=== PATIENT | female | born 1945 | race Caucasian/White ===

== ENCOUNTER 2021-11-30 13:02 | Observation (INO) ==
[2021-11-30 13:17] VITALS: BMI 24.9
[2021-11-30] MEDS ORDERED: XOPENEX 1.25 MG/3 ML NEBULE NEB ONE ×5 (13:35→17:29)
[2021-11-30] MEDS ORDERED: NS 1,000 ML IV 1,000 ML IV ONE (13:41)
[2021-11-30] MEDS ORDERED: SOLU-Medrol 125 MG VIAL IVP ONE (13:41)
--- NOTE | 2021-11-30 13:41 | DR.SOBA ---
HPI Time Seen Time Seen by Provider: 11/30/21 13:38 HPI Comment HPI Comment: EMS BROUGHT PATIENT TO EMERGENCY ROOM WITH A HISTORY OF CHRONIC DYSPNEA, PROGRESSIVELY WORSE TODAY. ALSO HAS A HISTORY OF CHRONIC BACK PAIN. DENIES FEVER, CHILLS NIGHT SWEATS Complaints Chief Complaint Doctors Comments: INCREASING DYSPNEA Chief Complaint:: PT ARRIVED PER [facility] FROM HOME W/ C/O CHRONIC SOB. PT STATES SOB BECAME WORSE THAN NORMAL TODAY. PT ALSO C/O CHRONIC BACK PAIN. PT DENIES ANY INJURIES @ THIS TIME. COVID-19 Coronavirus risk:travel/contact w/high risk person: No Has patient experienced Coronavirus symptoms: No Source History Provided: Patient and EMS Mode of Arrival Mode of Arrival: EMS Timing Onset of Chief Complaint: 11/30/21 Context Onset:: At Rest History of:: COPD Modifying Factors Worsens:: Exertion Associated Signs and Symptoms Associated Signs and Symptoms: Cough PMH PMH Past Medical History: Yes (UNKNOWN @ THIS TIME) Past Surgical History: Yes Surgical History: Unknown Family History History of Family Medical Conditions: Yes (UNKNOWN @ THIS TIME) Social History Does patient currently use any type of tobacco product: Yes Have you used tobacco products in the last 12 months: Yes Type of Tobacco Use: Cigarettes Travel Risk Coronavirus risk:travel/contact w/high risk person: No Has patient experienced Coronavirus symptoms: No Infectious screening Have you traveled outside the country in the last 6 months?: No Isolation: Standard ROS Review of Systems Constitutional: See HPI Eyes: No Symptoms Reported ENTM: No Symptoms Reported Respiratoy: See HPI, Dry Cough and Short of Breath Cardiovascular: No Symptoms Reported Gastrointestinal/Abdominal: No Symptoms Reported Genitourinary: No Symptoms Reported Neurological: No Symptoms Reported Musculoskeletal: Back Pain Integumentary: No Symptoms Reported Hematologic/Lymphatic: No Symptoms Reported Endocrine: No Symptoms Reported Psychiatric: No Symptoms Reported All Other Systems: Reviewed and Negative PE Vital Signs Vitals: Temperature 98.0 F Pulse Rate 101 Respiratory Rate 22 Blood Pressure 136/76 O2 Sat by Pulse Oximetry 98 General General Appearance: In Distress (MODERATE DISTRESS, MODERATE TACHYPNEA, LABORED BREATHING) Head Head Exam: Normal Inspection and Atraumatic Eyes Eye exam: Normal Appearance, PERRL and EOMI ENT ENT Exam: Normal Exam and Normal Oropharynx Neck Neck Exam: Normal Inspection and Full ROM Chest Chest Inspection: Normal Inspection and Symmetric Chest Wall Rise Respiratory Respiratory Exam: Bilateral: Decreased Breath Sounds and Bilateral: Dullness on Percussion and Lower: Decreased Breath Sounds and Lower: Dullness on Percussion Cardiovascular Cardiovascular Exam: Regular Rate, Normal Rhythm and Tachycardia Abdominal Exam Abdominal Exam: Normal Inspection and Normal Bowel Sounds Extremities Extremities Exam: Normal Inspection and Full ROM Back Back Exam: Normal Inspection and Full ROM Neurologic Neurological Exam: Oriented X3 MDM Differential Diagnosis Differential Diagnosis: COPD, Pneumonia and Pulmonary embolism COURSE Treatment Treatment: IV NORMAL SALINE 100ML/HR, SOLUMEDROL 125MG , ROCEPHIN 1GM IVPB, CONTINUOUS NEBULIZER DUONEB OVER 1 HOUR. Reevaluation 1st: Improved Consultation Call Returned: 16:56 Consultation Comments: DISCUSSED WITH DR JENKINS FOR OBSERVATION ROR Labs Reviewed Laboratory Results Reviewed?: Yes Result Diagrams: 11/30/21 13:40 11/30/21 13:40 Laboratory: WBC 4.9 X10^3/uL (3.6-10.0) 11/30/21 13:40 RBC 4.27 X10^6/uL (3.5-5.4) 11/30/21 13:40 Hgb 13.0 g/dL (12.0-16.0) 11/30/21 13:40 Hct 38.7 % (36.0-47.0) 11/30/21 13:40 MCV 90.8 fL (80.0-100.0) 11/30/21 13:40 MCH 30.4 pg (27.0-34.0) 11/30/21 13:40 MCHC 33.5 g/dL (33.0-35.0) 11/30/21 13:40 RDW 15.5 % (11.6-16.5) 11/30/21 13:40 Plt Count 244 X10^3/uL (150.0-450.0) 11/30/21 13:40 MPV 8.2 fL (7.4-11.0) 11/30/21 13:40 Neut % (Auto) 70.9 % (42.0-75.0) 11/30/21 13:40 Lymph % (Auto) 15.1 % (21.0-51.0) L 11/30/21 13:40 [place] % (Auto) 8.6 % (0.0-13.0) 11/30/21 13:40 Eos % (Auto) 4.9 % (0.9-2.9) H 11/30/21 13:40 Baso % (Auto) 0.5 % (0.2-1.0) 11/30/21 13:40 Neut # (Auto) 3.5 x10^3/uL (2.2-4.8) 11/30/21 13:40 Lymph # (Auto) 0.7 X10^3/uL (1.3-2.9) L 11/30/21 13:40 [place] # (Auto) 0.4 x10^3/uL (0.3-0.8) 11/30/21 13:40 Eos # (Auto) 0.2 x10^3/uL (0.0-0.2) 11/30/21 13:40 Baso # (Auto) 0.0 X10^3/uL (0.0-0.1) 11/30/21 13:40 Absolute Nucleated RBC 0.0 /100WBC 11/30/21 13:40 D-Dimer 1.08 ug/ml (0.0-0.57) H* 11/30/21 13:40 Sample Site Lr 11/30/21 18:17 ABG pH 7.340 (7.35-7.45) L 11/30/21 18:17 ABG pCO2 68.0 mmHg (35.0-45.0) H* 11/30/21 18:17 ABG pO2 98.0 mmHg (80.0-100.0) 11/30/21 18:17 ABG HCO3 36.7 mmol/L (22-26) H* 11/30/21 18:17 ABG O2 Saturation 97.0 % (90-100) 11/30/21 18:17 ABG Base Excess 8.6 mmol/L (-2.0-2.0) H 11/30/21 18:17 Dwight Test Pos 11/30/21 18:17 A-a Gradient 45.0 mmHg 11/30/21 18:17 FiO2 32.0 11/30/21 18:17 Blood Gas Comments Deshawn well cb 11/30/21 18:17 Sodium 144 mmol/L (136-145) 11/30/21 13:40 Corrected Sodium 145 mmol/L (136-145) 11/30/21 13:40 Potassium 3.7 mmol/L (3.5-5.1) 11/30/21 13:40 Chloride 105 mmol/L (98-107) 11/30/21 13:40 Carbon Dioxide 35.5 mmol/L (21-32) H 11/30/21 13:40 BUN 12 mg/dL (7-18) 11/30/21 13:40 Creatinine 0.45 mg/dL (0.55-1.02) L 11/30/21 13:40 Est GFR (MDRD) Af Amer > 60 (>60) 11/30/21 13:40 Est GFR (MDRD) Non-Af > 60 (>60) 11/30/21 13:40 Glucose 126 mg/dL (65-99) H 11/30/21 13:40 Calcium 8.6 mg/dL (8.5-10.1) 11/30/21 13:40 Corrected Calcium 9.2 mg/dL (8.5-10.1) 11/30/21 13:40 Magnesium 1.9 mg/dL (1.7-2.9) 11/30/21 13:40 Total Bilirubin 0.40 mg/dL (0.2-1.0) 11/30/21 13:40 AST 20 Units/L (15-37) 11/30/21 13:40 ALT 13 Units/L (12-78) 11/30/21 13:40 Alkaline Phosphatase 176 Units/L (46-116) H 11/30/21 13:40 Troponin I High Sens 20.6 ng/L (4.0-60.0) 11/30/21 13:40 Total Protein 7.0 g/dL (6.4-8.2) 11/30/21 13:40 Albumin 3.2 g/dL (3.4-5.0) L 11/30/21 13:40 Globulin 3.8 g/dL (2.5-4.5) 11/30/21 13:40 Albumin/Globulin Ratio 0.8 Ratio (1.1-2.1) L 11/30/21 13:40 Influenza Type A Ag Negative-presumptive (NEGATIVE) 11/30/21 13:30 Influenza Type B Ag Negative-presumptive (NEGATIVE) 11/30/21 13:30 SARS CoV-2 RNA Rapid CALLUM Negative (NEGATIVE) 11/30/21 13:30 XRAY XRAY Interpreted by: Radiologist (CTA CHEST WITH INTRAVENOUS C/W COPD, NO EVIDENCE OF PE, ) X-ray Results: CHEST XRAY-CONSISTENT WITH COPD, EKG Rate: 106 Rhythm: NSR Block: IVCD Opioid Opioid Risk Tool Age (Enzo box if 16-45): No History of Preadolescent Sexual Abuse: No Total: 0 Total Score Risk Category: Low Risk Copyright: Olman HOANG predicting aberrant behaviors Diagnosis Discharge Problem: Dyspnea, Acute exacerbation of chronic obstructive pulmonary disease
[2021-11-30] MEDS ORDERED: ROCEPHIN 1 GRAM IV PREMIX 1 G/50 ML IV.SOLN. IV ONE ×2 (13:44→14:04)
[2021-11-30] MEDS ORDERED: NS 1,000 ML IV 1,000 ML ONE (14:04)
[2021-11-30] MEDS ORDERED: SOLU-Medrol 125 MG VIAL ONE (14:04)
[2021-11-30 14:07] LABS: BASOPHILS % (AUTO) 0.5 % (0.2-1.0); EOSINOPHILS # (AUTO) 0.2 x10^3/uL (0.0-0.2); EOSINOPHILS % (AUTO) 4.9 % (0.9-2.9); HEMATOCRIT 38.7 % (36.0-47.0); LYMPHOCYTES # (AUTO) 0.7 X10^3/uL (1.3-2.9); LYMPHOCYTES % (AUTO) 15.1 % (21.0-51.0); MEAN CORPUSCULAR HEMOGLOBIN 30.4 pg (27.0-34.0); MEAN CORPUSCULAR HGB CONC 33.5 g/dL (33.0-35.0); MEAN CORPUSCULAR VOLUME 90.8 fL (80.0-100.0); MEAN PLATELET VOLUME 8.2 fL (7.4-11.0); MONOCYTES # (AUTO) 0.4 x10^3/uL (0.3-0.8); MONOCYTES % (AUTO) 8.6 % (0.0-13.0); NEUTROPHILS # (AUTO) 3.5 x10^3/uL (2.2-4.8); NEUTROPHILS % (AUTO) 70.9 % (42.0-75.0); RED BLOOD COUNT 4.27 X10^6/uL (3.5-5.4); RED CELL DISTRIBUTION WIDTH 15.5 % (11.6-16.5); WHITE BLOOD COUNT 4.9 X10^3/uL (3.6-10.0)
[2021-11-30 14:20] LABS: ALANINE AMINOTRANSFERASE 13 Units/L (12-78); ALBUMIN 3.2 g/dL (3.4-5.0); ALKALINE PHOSPHATASE 176 Units/L (46-116); ASPARTATE AMINO TRANSFERASE 20 Units/L (15-37); BLOOD UREA NITROGEN 12 mg/dL (7-18); CALCIUM 8.6 mg/dL (8.5-10.1); CARBON DIOXIDE 35.5 mmol/L (21-32); CHLORIDE 105 mmol/L (98-107); COR CA(FOR HYPOALB) 9.2 mg/dL (8.5-10.1); COR NA(FOR HYPERGLY) 145 mmol/L (136-145); CREATININE 0.45 mg/dL (0.55-1.02); MAGNESIUM 1.9 mg/dL (1.7-2.9); SODIUM 144 mmol/L (136-145); eGFR NON BLACK RACES > 60 (>60)
--- NOTE | 2021-11-30 16:29 | RAD ---
HISTORYRelevant Clinical Information COUGH, SOBSTUDYCHEST, 1 VIEWCOMPARISONNoneFINDINGSThe trachea is midline. The cardiac silhouette is unremarkable. The lungs demonstrate chronic changes of COPD without focal infiltrate or effusion. The bony thorax is unremarkable.IMPRESSIONNo acute cardiopulmonary disease.Electronically signed by: MARICEL FRANCISCO (Nov 30, 2021 16:28:38)
--- NOTE | 2021-11-30 16:39 | CT ---
HISTORYDYSPNEASTUDYCTA CHESTCOMPARISONPlain film dated 11/30/2019.TECHNIQUEMultiple axial images of the chest were obtained from the thoracic inlet to the upper abdomen after the administration of IV contrast. 3D reconstructions utilizing axial MIPS imaging was performed and reviewed. Dose reduction techniques including Automated Exposure Control (AEC) and adjustment of mA and kV were utilized.FINDINGSThe heart size is enlarged. There is multi-vessel coronary atherosclerosis which is quite severe. There is no abnormal dilation of the right ventricle or of the main pulmonary artery. There is no filling defect in the pulmonary arteries to suggest a pulmonary embolus. There is atherosclerosis in the aorta but no aneurysm or dissection. There is no pathologic adenopathy. Thyroid gland is grossly normal. There is no supraclavicular or axillary adenopathy of concern. Aside from the severe atherosclerosis, there is no significant abnormality below the diaphragm. There is mild bronchial wall thickening. There is no endobronchial mass. There is centrilobular emphysema most pronounced in the upper lobes. There is some scarring in the right upper lobe with a small nodular component measuring 4.6 millimeter diameter. There is some lingular and right lower lobe stranding suggestive of atelectasis or scarring. There is no pleural effusion. There is age-indeterminate superior endplate compression fracture of T11 and a chronic appearing inferior endplate compression fracture of T12. There is nonspecific sclerosis in T8. There is no compromise of the spinal canal at any level and no significant neural foraminal stenosis. There is posterior disc osteophyte formation at T12-L1 and L1-L2 and L2-L3 which appears to be quite severe and may cause some spinal stenosis..IMPRESSION1. Coronary systemic atherosclerosis. 2. No evidence of pulmonary embolus. 3. Bronchial wall thickening and emphysema. 4. No evidence of acute infection in the lungs. 5. If there are radicular symptoms, MRI of the lumbar spine is recommended without contrast.Electronically signed by: Constantino Mathew (Nov 30, 2021 16:38:34)
[2021-11-30 18:22] LABS: ABG BASE EXCESS 8.6 mmol/L (-2.0-2.0)
[2021-11-30 18:23] LABS: ABG ALLEN TEST POS; ABG HCO3 36.7 mmol/L (22-26)
[2021-11-30] MEDS ORDERED: DUONEB 0.5 MG/3 MG (3 mL) NEB ONE ×4 (21:43→21:57)
[2021-11-30] MEDS ORDERED: NORCO 5/325 MG TAB PO ONE (23:15)
[2021-11-30] MEDS ORDERED: NORCO 5/325 MG TAB ONE (23:18)
[2021-12-01] MEDS ORDERED: TYLENOL 325 MG TAB PO PRN (00:39)
[2021-12-01] MEDS: ROCEPHIN 1 GRAM IV PREMIX 1 G/50 ML IV.SOLN. IV SCH (03:21)
[2021-12-01] MEDS ORDERED: ZITHROMAX INJ 500 MG VIAL IV ONE (03:35)
[2021-12-01] MEDS ORDERED: NS 250 ML IV 250 ML IV ONE (03:35)
[2021-12-01] MEDS ORDERED: SOLU-Medrol 40 MG VIAL ONE ×2 (03:35→08:06)
[2021-12-01] MEDS ORDERED: NS 1,000 ML IV 1,000 ML ONE (03:35)
[2021-12-01] MEDS: NS 1,000 ML IV 1,000 ML IV SCH ×2 (03:55→15:40)
[2021-12-01] MEDS: ZITHROMAX INJ 500 MG VIAL 500 MG in NS 250 ML IV 250 ML IV SCH (03:56)
[2021-12-01] MEDS: SOLU-Medrol 40 MG VIAL IVP SCH ×4 (03:56→21:00)
[2021-12-01] MEDS ORDERED: XANAX ONE (05:15)
[2021-12-01] MEDS: XANAX PO PRN ×2 (05:35→20:50)
[2021-12-01 06:26] LABS: BASOPHILS % (AUTO) 0.1 % (0.2-1.0); HEMATOCRIT 37.5 % (36.0-47.0); HEMOGLOBIN 12.6 g/dL (12.0-16.0); LYMPHOCYTES # (AUTO) 0.4 X10^3/uL (1.3-2.9); LYMPHOCYTES % (AUTO) 12.8 % (21.0-51.0); MEAN CORPUSCULAR HEMOGLOBIN 30.5 pg (27.0-34.0); MEAN CORPUSCULAR HGB CONC 33.5 g/dL (33.0-35.0); MEAN CORPUSCULAR VOLUME 90.9 fL (80.0-100.0); MEAN PLATELET VOLUME 8.1 fL (7.4-11.0); MONOCYTES # (AUTO) 0.1 x10^3/uL (0.3-0.8); MONOCYTES % (AUTO) 2.8 % (0.0-13.0); NEUTROPHILS # (AUTO) 2.4 x10^3/uL (2.2-4.8); NEUTROPHILS % (AUTO) 84.3 % (42.0-75.0); RED BLOOD COUNT 4.12 X10^6/uL (3.5-5.4); RED CELL DISTRIBUTION WIDTH 15.5 % (11.6-16.5); WHITE BLOOD COUNT 2.9 X10^3/uL (3.6-10.0)
[2021-12-01 06:39] LABS: ALANINE AMINOTRANSFERASE 10 Units/L (12-78); ALBUMIN 3.1 g/dL (3.4-5.0); ALKALINE PHOSPHATASE 167 Units/L (46-116); ASPARTATE AMINO TRANSFERASE 19 Units/L (15-37); BLOOD UREA NITROGEN 15 mg/dL (7-18); CALCIUM 8.5 mg/dL (8.5-10.1); CARBON DIOXIDE 30.9 mmol/L (21-32); CHLORIDE 104 mmol/L (98-107); COR CA(FOR HYPOALB) 9.2 mg/dL (8.5-10.1); COR NA(FOR HYPERGLY) 142 mmol/L (136-145); CREATININE 0.58 mg/dL (0.55-1.02); SODIUM 141 mmol/L (136-145); TOTAL PROTEIN 6.9 g/dL (6.4-8.2); eGFR NON BLACK RACES > 60 (>60)
[2021-12-01] MEDS: DUONEB 0.5 MG/3 MG (3 mL) NEB SCH ×4 (07:55→20:00)
[2021-12-01] MEDS ORDERED: TYLENOL 325 MG TAB PO ONE (08:06)
[2021-12-01] MEDS ORDERED: DUONEB 0.5 MG/3 MG (3 mL) NEB PRN (10:22)
[2021-12-01] MEDS ORDERED: FLEXERIL TAB 10 MG PO PRN (10:22)
[2021-12-01] MEDS ORDERED: PATIENT'S HOME MEDICATION (Alprazolam 0.5 mg tablet) PO PRN (10:22)
[2021-12-01] MEDS ORDERED: PATIENT'S HOME MEDICATION PO SCH (11:00)
[2021-12-01] MEDS: PULMICORT NEB TX 0.5 MG NEB SCH ×2 (11:00→20:00)
[2021-12-01] MEDS ORDERED: DALIRESP PO SCH (11:00)
[2021-12-01] MEDS ORDERED: PLAVIX ONE (11:27)
[2021-12-01] MEDS ORDERED: FLEXERIL TAB 10 MG ONE (11:27)
[2021-12-01] MEDS ORDERED: NORCO 5/325 MG TAB ONE (11:28)
[2021-12-01] MEDS: PLAVIX PO SCH (11:30)
[2021-12-01] MEDS: NORCO 5/325 MG TAB PO PRN ×2 (11:30→20:50)
[2021-12-01] MEDS: COREG TAB 6.25 MG PO SCH ×2 (11:37→20:50)
[2021-12-01] MEDS: LIPITOR TAB 40 MG PO SCH (11:37)
[2021-12-01] MEDS: CELEXA PO SCH (11:37)
[2021-12-01] MEDS: ENTRESTO 24/26 MG TAB PO SCH ×2 (11:37→20:51)
[2021-12-02] MEDS: DUONEB 0.5 MG/3 MG (3 mL) NEB SCH ×6 (00:10→20:05)
--- NOTE | 2021-12-02 00:46 | DR.H&P ---
H&P - History & Physical for Day of: H&P Date: 11/30/21 - Chief Complaint Chief Complaint: Dyspnea - History of Present Illness History of Present Illness: Patient is a 75 year old WF who is being admitted due to dysnea, acute COPD exacerbation, Acute on chronic resp failure. Patient has an extensive PMH of COPD. Patient uses a trilogy at home as well as home oxygen. Patient's PCP is in [place]. Patient reports dyspnea which was significantly worse today. Denies fever chilld or increase in sputum. Does report her grandchild has been sick a viral URI illness and she feels that is why she is now sick. Imaging negative for pna however does show hronic findings. PAtient reports all other symptosm as chronic. Patient is a daily smoker and continues to smoke however smokes rarely. - Past Medical History Past Medical History: Anxiety, CHF, COPD, Coronary Artery Disease - Past Surgical History Surgical History: Hysterectomy, Tonsillectomy - Family History Family Medical History: [place], Coronary Artery Disease - Social History Does patient currently use any type of tobacco product: Yes Have you used tobacco products in the last 12 months: Yes Type of Tobacco Use: Cigarettes Alcohol Use: None Drug Use: None - Medications Home Medications: No Known Drug Allergies Allergy (Verified 12/01/21 00:34) CONTINUE taking the following medications alprazolam 0.5 mg PO TID PRN 12/01/21 [History] atorvastatin 40 mg PO DAILY 12/01/21 [History] budesonide 0.5 mg INHALATION BID 12/01/21 [History] carvedilol 6.25 mg PO BID 12/01/21 [History] citalopram 40 mg PO DAILY 12/01/21 [History] clopidogrel 75 mg PO DAILY 12/01/21 [History] cyclobenzaprine 5 mg PO TID 12/01/21 [History] hydrocodone-acetaminophen 1 tab PO Q6H PRN 12/01/21 [History] ipratropium-albuterol 3 ml INHALATION Q4H PRN 12/01/21 [History] roflumilast [Daliresp] 500 mcg PO DAILY 12/01/21 [History] sacubitril-valsartan [Entresto] 1 tab PO BID 12/01/21 [History] - Review of Systems Constitutional: See HPI Eyes: See HPI ENT: See HPI Respiratory: See HPI Cardiovascular: See HPI Gastrointestinal: See HPI Genitourinary: See HPI Musculoskeletal: See HPI Skin: See HPI Neurological: See HPI - Physical Exam Vital Signs: Temperature 98.2 F Pulse Rate [Apical] 106 Pulse Rate 94 Respiratory Rate 18 Blood Pressure [Right Arm] 161/77 Blood Pressure 136/76 O2 Sat by Pulse Oximetry 99 Oriented: Normal, Time, Person, Place Eyes: Normal Ear: Normal Nose: Normal Throat: Normal Respiratory: Diminished Throughout, Rhonchi Throughout Cardiovascular: Normal : Normal Auscultation: Bowel Sounds: Normal Palpation: Normal Tenderness: Normal Skin: Decreased Turgur Musculoskeletal: Normal, Instability Psychiatric: Normal Mood Description: Calm Affect: Normal Speech Pattern: Clear, Appropriate - Assessment/Plan (1) Acute exacerbation of chronic obstructive pulmonary disease Status: Acute Plan: Cultures. IV abx and steroids. Trend labs, ABG, adn CXR (2) Dyspnea Status: Acute (3) Chronic respiratory failure Status: Chronic Plan: home oxygen. Home trilogy (4) History of CHF (congestive heart failure) Status: Chronic (5) History of coronary artery disease Status: Chronic (6) Tobacco abuse Status: Chronic Plan: counseled on cessation - Allergies Allergies/Adverse Reactions: Allergies Allergy/AdvReac Type Severity Reaction Status Date / Time No Known Drug Allergies Allergy Verified 12/01/21 00:34
--- NOTE | 2021-12-02 00:54 | PCM.PROG ---
Progress Note - Progress Note for Day of Date of Exam: 12/01/21 - Subjective Subjective: Patient was admitted as per HPI. Patient reports symptoms improved. No new concerns at present. Continues current orders and meds. - Past Medical Family Social History Past Med/Fam/Surg Hx: No changes since H&P Allergies: Allergies No Known Drug Allergies Allergy (Verified 12/01/21 00:34) - Review of Systems ROS: No change since H&P - Vital Signs and I&O's Vital Signs: Temperature 97.6 F Pulse Rate [Apical] 86 Pulse Rate 94 Respiratory Rate 22 Blood Pressure [Right Arm] 162/74 Blood Pressure 136/76 O2 Sat by Pulse Oximetry 97 Intake and Output: Intake & Output 11/29/21 11/30/21 12/01/21 12/02/21 23:59 23:59 23:59 23:59 Intake Total 1975 Balance 1975 - Physical Exam Oriented: Normal, Time, Person, Place Eyes: Normal Ear: Normal Nose: Normal Throat: Normal Respiratory: Generalized, Rhonchi Cardiovascular: Normal : Normal Auscultation: Bowel Sounds: Normal Palpation: Normal Tenderness: Normal Skin: Decreased Turgur Musculoskeletal: Normal, Instability Psychiatric: Normal Mood Description: Calm Affect: Normal Speech Pattern: Clear, Appropriate - Laboratory and Diagnostics Result Diagrams: 12/01/21 06:00 12/01/21 06:00 Labs: Laboratory WBC 2.9 X10^3/uL (3.6-10.0) L 12/01/21 06:00 RBC 4.12 X10^6/uL (3.5-5.4) 12/01/21 06:00 Hgb 12.6 g/dL (12.0-16.0) 12/01/21 06:00 Hct 37.5 % (36.0-47.0) 12/01/21 06:00 MCV 90.9 fL (80.0-100.0) 12/01/21 06:00 MCH 30.5 pg (27.0-34.0) 12/01/21 06:00 MCHC 33.5 g/dL (33.0-35.0) 12/01/21 06:00 RDW 15.5 % (11.6-16.5) 12/01/21 06:00 Plt Count 236 X10^3/uL (150.0-450.0) 12/01/21 06:00 MPV 8.1 fL (7.4-11.0) 12/01/21 06:00 Neut % (Auto) 84.3 % (42.0-75.0) H 12/01/21 06:00 Lymph % (Auto) 12.8 % (21.0-51.0) L 12/01/21 06:00 [place] % (Auto) 2.8 % (0.0-13.0) 12/01/21 06:00 Eos % (Auto) 0.0 % (0.9-2.9) L 12/01/21 06:00 Baso % (Auto) 0.1 % (0.2-1.0) L 12/01/21 06:00 Neut # (Auto) 2.4 x10^3/uL (2.2-4.8) 12/01/21 06:00 Lymph # (Auto) 0.4 X10^3/uL (1.3-2.9) L 12/01/21 06:00 [place] # (Auto) 0.1 x10^3/uL (0.3-0.8) L 12/01/21 06:00 Eos # (Auto) 0.0 x10^3/uL (0.0-0.2) 12/01/21 06:00 Baso # (Auto) 0.0 X10^3/uL (0.0-0.1) 12/01/21 06:00 Absolute Nucleated RBC 0.0 /100WBC 12/01/21 06:00 D-Dimer 1.08 ug/ml (0.0-0.57) H* 11/30/21 13:40 Sample Site Lr 11/30/21 18:17 ABG pH 7.340 (7.35-7.45) L 11/30/21 18:17 ABG pCO2 68.0 mmHg (35.0-45.0) H* 11/30/21 18:17 ABG pO2 98.0 mmHg (80.0-100.0) 11/30/21 18:17 ABG HCO3 36.7 mmol/L (22-26) H* 11/30/21 18:17 ABG O2 Saturation 97.0 % (90-100) 11/30/21 18:17 ABG Base Excess 8.6 mmol/L (-2.0-2.0) H 11/30/21 18:17 Dwight Test Pos 11/30/21 18:17 A-a Gradient 45.0 mmHg 11/30/21 18:17 FiO2 32.0 11/30/21 18:17 Blood Gas Comments Deshawn well cb 11/30/21 18:17 Sodium 141 mmol/L (136-145) 12/01/21 06:00 Corrected Sodium 142 mmol/L (136-145) 12/01/21 06:00 Potassium 3.5 mmol/L (3.5-5.1) 12/01/21 06:00 Chloride 104 mmol/L (98-107) 12/01/21 06:00 Carbon Dioxide 30.9 mmol/L (21-32) 12/01/21 06:00 BUN 15 mg/dL (7-18) 12/01/21 06:00 Creatinine 0.58 mg/dL (0.55-1.02) 12/01/21 06:00 Est GFR (MDRD) Af Amer > 60 (>60) 12/01/21 06:00 Est GFR (MDRD) Non-Af > 60 (>60) 12/01/21 06:00 Glucose 145 mg/dL (65-99) H 12/01/21 06:00 Calcium 8.5 mg/dL (8.5-10.1) 12/01/21 06:00 Corrected Calcium 9.2 mg/dL (8.5-10.1) 12/01/21 06:00 Magnesium 1.9 mg/dL (1.7-2.9) 11/30/21 13:40 Total Bilirubin 0.40 mg/dL (0.2-1.0) 12/01/21 06:00 AST 19 Units/L (15-37) 12/01/21 06:00 ALT 10 Units/L (12-78) L 12/01/21 06:00 Alkaline Phosphatase 167 Units/L (46-116) H 12/01/21 06:00 Troponin I High Sens 20.6 ng/L (4.0-60.0) 11/30/21 13:40 Total Protein 6.9 g/dL (6.4-8.2) 12/01/21 06:00 Albumin 3.1 g/dL (3.4-5.0) L 12/01/21 06:00 Globulin 3.8 g/dL (2.5-4.5) 12/01/21 06:00 Albumin/Globulin Ratio 0.8 Ratio (1.1-2.1) L 12/01/21 06:00 Influenza Type A Ag Negative-presumptive (NEGATIVE) 11/30/21 13:30 Influenza Type B Ag Negative-presumptive (NEGATIVE) 11/30/21 13:30 SARS CoV-2 RNA Rapid CALLUM Negative (NEGATIVE) 11/30/21 13:30 - Plan (1) Acute exacerbation of chronic obstructive pulmonary disease Status: Acute Plan: Cultures. IV abx and steroids. Trend labs, ABG, adn CXR (2) Dyspnea Status: Acute (3) Chronic respiratory failure Status: Chronic Plan: home oxygen. Home trilogy (4) History of CHF (congestive heart failure) Status: Chronic (5) History of coronary artery disease Status: Chronic (6) Tobacco abuse Status: Chronic Plan: counseled on cessation
[2021-12-02] MEDS: ROCEPHIN 1 GRAM IV PREMIX 1 G/50 ML IV.SOLN. IV SCH (01:10)
[2021-12-02] MEDS: ZITHROMAX INJ 500 MG VIAL 500 MG in NS 250 ML IV 250 ML IV SCH (02:03)
[2021-12-02] MEDS: SOLU-Medrol 40 MG VIAL IVP SCH ×4 (02:04→21:47)
[2021-12-02 04:55] LABS: ABG BASE EXCESS 6.4 mmol/L (-2.0-2.0)
[2021-12-02 04:56] LABS: ABG HCO3 32.3 mmol/L (22-26)
[2021-12-02] MEDS: NORCO 5/325 MG TAB PO PRN ×3 (05:26→21:49)
[2021-12-02 06:17] LABS: BASOPHILS % (AUTO) 0.2 % (0.2-1.0); HEMATOCRIT 35.7 % (36.0-47.0); HEMOGLOBIN 11.8 g/dL (12.0-16.0); LYMPHOCYTES # (AUTO) 0.3 X10^3/uL (1.3-2.9); LYMPHOCYTES % (AUTO) 5.6 % (21.0-51.0); MEAN CORPUSCULAR HEMOGLOBIN 30.1 pg (27.0-34.0); MEAN CORPUSCULAR HGB CONC 33.2 g/dL (33.0-35.0); MEAN CORPUSCULAR VOLUME 90.5 fL (80.0-100.0); MEAN PLATELET VOLUME 8.4 fL (7.4-11.0); MONOCYTES # (AUTO) 0.2 x10^3/uL (0.3-0.8); MONOCYTES % (AUTO) 3.4 % (0.0-13.0); NEUTROPHILS # (AUTO) 5.5 x10^3/uL (2.2-4.8); NEUTROPHILS % (AUTO) 90.8 % (42.0-75.0); RED BLOOD COUNT 3.94 X10^6/uL (3.5-5.4); RED CELL DISTRIBUTION WIDTH 15.6 % (11.6-16.5); WHITE BLOOD COUNT 6.1 X10^3/uL (3.6-10.0)
[2021-12-02 06:41] LABS: ALANINE AMINOTRANSFERASE 13 Units/L (12-78); ALBUMIN 2.9 g/dL (3.4-5.0); ALKALINE PHOSPHATASE 139 Units/L (46-116); ASPARTATE AMINO TRANSFERASE 20 Units/L (15-37); BLOOD UREA NITROGEN 15 mg/dL (7-18); CALCIUM 8.4 mg/dL (8.5-10.1); CARBON DIOXIDE 31.9 mmol/L (21-32); CHLORIDE 108 mmol/L (98-107); COR CA(FOR HYPOALB) 9.3 mg/dL (8.5-10.1); COR NA(FOR HYPERGLY) 150 mmol/L (136-145); CREATININE 0.56 mg/dL (0.55-1.02); SODIUM 149 mmol/L (136-145); TOTAL PROTEIN 6.3 g/dL (6.4-8.2); eGFR NON BLACK RACES > 60 (>60)
--- NOTE | 2021-12-02 07:19 | RAD ---
HISTORYCOPDSTUDYCHEST, 1 [id number]/07/2022.TECHNIQUEAP view of the chestFINDINGSThe cardiac silhouette is stably enlarged. Mediastinal contours appear stable. Lungs are hyperexpanded with flattening of the hemidiaphragms and blunting of the costophrenic sulci. No consolidation or segmental lung collapse. Jewelry about the neck is noted. No pneumothorax.IMPRESSIONStable cardiomegaly and COPD. Blunted costophrenic sulci can be seen with pleural parenchymal scarring as well as with small pleural effusions.Electronically signed by: Fredis Perez (Dec 02, 2021 07:18:24)
[2021-12-02 07:31] LABS: BAND NEUTROPHILS % 3 % (0-10); PLATELET MORPHOLOGY COMMENT NORMAL (NORMAL)
[2021-12-02] MEDS: PULMICORT NEB TX 0.5 MG NEB SCH ×2 (08:41→20:05)
[2021-12-02] MEDS: ENTRESTO 24/26 MG TAB PO SCH ×2 (10:36→21:46)
[2021-12-02] MEDS: CELEXA PO SCH (10:37)
[2021-12-02] MEDS: COREG TAB 6.25 MG PO SCH ×2 (10:37→21:46)
[2021-12-02] MEDS: LIPITOR TAB 40 MG PO SCH (10:37)
[2021-12-02] MEDS: DALIRESP PO SCH (10:39)
[2021-12-02] MEDS: XANAX PO PRN ×2 (10:41→21:46)
[2021-12-02] MEDS: PLAVIX PO SCH (10:41)
[2021-12-03] MEDS: ROCEPHIN 1 GRAM IV PREMIX 1 G/50 ML IV.SOLN. IV SCH (00:47)
[2021-12-03] MEDS: DUONEB 0.5 MG/3 MG (3 mL) NEB SCH ×6 (00:52→20:25)
[2021-12-03] MEDS: ZITHROMAX INJ 500 MG VIAL 500 MG in NS 250 ML IV 250 ML IV SCH (01:57)
--- NOTE | 2021-12-03 02:31 | PCM.PROG ---
Progress Note - Progress Note for Day of Date of Exam: 12/02/21 - Subjective Subjective: Patient was admitted as per HPI. Patient reports symptoms improved. No new concerns at present. Continues current orders and meds. Patient reports improvement in symptoms. Possible discharge in am. - Past Medical Family Social History Past Med/Fam/Surg Hx: No changes since H&P Allergies: Allergies No Known Drug Allergies Allergy (Verified 12/01/21 00:34) - Review of Systems ROS: No change since H&P - Vital Signs and I&O's Vital Signs: Temperature 97.4 F Pulse Rate [Apical] 86 Pulse Rate 101 Respiratory Rate 20 Blood Pressure [Right Arm] 167/75 Blood Pressure 136/76 O2 Sat by Pulse Oximetry 95 Intake and Output: Intake & Output 11/30/21 12/01/21 12/02/21 12/03/21 23:59 23:59 23:59 23:59 Intake Total 19753 / 2313 Balance 1975 - Physical Exam Oriented: Normal, Time, Person, Place Eyes: Normal Ear: Normal Nose: Normal Throat: Normal Respiratory: Generalized, Rhonchi Cardiovascular: Normal : Normal Auscultation: Bowel Sounds: Normal Palpation: Normal Tenderness: Normal Skin: Decreased Turgur Musculoskeletal: Normal, Instability Psychiatric: Normal Mood Description: Calm Affect: Normal Speech Pattern: Clear, Appropriate - Laboratory and Diagnostics Result Diagrams: 12/02/21 05:20 12/02/21 05:20 Labs: 11/30/21 14:38 Blood Blood Culture - Preliminary 11/30/21 14:34 Blood Blood Culture - Preliminary Laboratory WBC 6.1 X10^3/uL (3.6-10.0) 12/02/21 05:20 RBC 3.94 X10^6/uL (3.5-5.4) 12/02/21 05:20 Hgb 11.8 g/dL (12.0-16.0) L 12/02/21 05:20 Hct 35.7 % (36.0-47.0) L 12/02/21 05:20 MCV 90.5 fL (80.0-100.0) 12/02/21 05:20 MCH 30.1 pg (27.0-34.0) 12/02/21 05:20 MCHC 33.2 g/dL (33.0-35.0) 12/02/21 05:20 RDW 15.6 % (11.6-16.5) 12/02/21 05:20 Plt Count 245 X10^3/uL (150.0-450.0) 12/02/21 05:20 Plt Count Comment Adequate (ADEQUATE) 12/02/21 05:20 MPV 8.4 fL (7.4-11.0) 12/02/21 05:20 Neut % (Auto) 90.8 % (42.0-75.0) H 12/02/21 05:20 Lymph % (Auto) 5.6 % (21.0-51.0) L 12/02/21 05:20 [place] % (Auto) 3.4 % (0.0-13.0) 12/02/21 05:20 Eos % (Auto) 0.0 % (0.9-2.9) L 12/02/21 05:20 Baso % (Auto) 0.2 % (0.2-1.0) 12/02/21 05:20 Neut # (Auto) 5.5 x10^3/uL (2.2-4.8) H 12/02/21 05:20 Lymph # (Auto) 0.3 X10^3/uL (1.3-2.9) L 12/02/21 05:20 [place] # (Auto) 0.2 x10^3/uL (0.3-0.8) L 12/02/21 05:20 Eos # (Auto) 0.0 x10^3/uL (0.0-0.2) 12/02/21 05:20 Baso # (Auto) 0.0 X10^3/uL (0.0-0.1) 12/02/21 05:20 Absolute Nucleated RBC 0.0 /100WBC 12/02/21 05:20 Total Counted 100 12/02/21 05:20 Neutrophils % (Manual) 92 % (39-76) H 12/02/21 05:20 Band Neutrophils % 3 % (0-10) 12/02/21 05:20 Lymphocytes % (Manual) 3 % (13-43) L 12/02/21 05:20 Monocytes % (Manual) 2 % (4-9) L 12/02/21 05:20 Plt Morphology Comment Normal (NORMAL) 12/02/21 05:20 RBC Morphology Normal (NORMAL) 12/02/21 05:20 D-Dimer 1.08 ug/ml (0.0-0.57) H* 11/30/21 13:40 Sample Site Rb 12/02/21 04:50 ABG pH 7.410 (7.35-7.45) 12/02/21 04:50 ABG pCO2 51.0 mmHg (35.0-45.0) H* 12/02/21 04:50 ABG pO2 76.0 mmHg (80.0-100.0) L 12/02/21 04:50 ABG HCO3 32.3 mmol/L (22-26) H* 12/02/21 04:50 ABG O2 Saturation 95.0 % (90-100) 12/02/21 04:50 ABG Base Excess 6.4 mmol/L (-2.0-2.0) H 12/02/21 04:50 Dwight Test N/a 12/02/21 04:50 A-a Gradient 88.0 mmHg 12/02/21 04:50 FiO2 32.0 12/02/21 04:50 Blood Gas Comments Deshawn well ae 12/02/21 04:50 Sodium 149 mmol/L (136-145) H 12/02/21 05:20 Corrected Sodium 150 mmol/L (136-145) H 12/02/21 05:20 Potassium 3.5 mmol/L (3.5-5.1) 12/02/21 05:20 Chloride 108 mmol/L (98-107) H 12/02/21 05:20 Carbon Dioxide 31.9 mmol/L (21-32) 12/02/21 05:20 BUN 15 mg/dL (7-18) 12/02/21 05:20 Creatinine 0.56 mg/dL (0.55-1.02) 12/02/21 05:20 Est GFR (MDRD) Af Amer > 60 (>60) 12/02/21 05:20 Est GFR (MDRD) Non-Af > 60 (>60) 12/02/21 05:20 Glucose 148 mg/dL (65-99) H 12/02/21 05:20 Calcium 8.4 mg/dL (8.5-10.1) L 12/02/21 05:20 Corrected Calcium 9.3 mg/dL (8.5-10.1) 12/02/21 05:20 Magnesium 1.9 mg/dL (1.7-2.9) 11/30/21 13:40 Total Bilirubin 0.30 mg/dL (0.2-1.0) 12/02/21 05:20 AST 20 Units/L (15-37) 12/02/21 05:20 ALT 13 Units/L (12-78) 12/02/21 05:20 Alkaline Phosphatase 139 Units/L (46-116) H 12/02/21 05:20 Troponin I High Sens 20.6 ng/L (4.0-60.0) 11/30/21 13:40 Total Protein 6.3 g/dL (6.4-8.2) L 12/02/21 05:20 Albumin 2.9 g/dL (3.4-5.0) L 12/02/21 05:20 Globulin 3.4 g/dL (2.5-4.5) 12/02/21 05:20 Albumin/Globulin Ratio 0.9 Ratio (1.1-2.1) L 12/02/21 05:20 Influenza Type A Ag Negative-presumptive (NEGATIVE) 11/30/21 13:30 Influenza Type B Ag Negative-presumptive (NEGATIVE) 11/30/21 13:30 SARS CoV-2 RNA Rapid CALLUM Negative (NEGATIVE) 11/30/21 13:30 - Plan (1) Acute exacerbation of chronic obstructive pulmonary disease Status: Acute Plan: Cultures. IV abx and steroids. Trend labs, ABG, adn CXR (2) Dyspnea Status: Acute (3) Chronic respiratory failure Status: Chronic Plan: home oxygen. Home trilogy (4) History of CHF (congestive heart failure) Status: Chronic (5) History of coronary artery disease Status: Chronic (6) Tobacco abuse Status: Chronic Plan: counseled on cessation
[2021-12-03] MEDS: SOLU-Medrol 40 MG VIAL IVP SCH ×4 (03:13→20:50)
[2021-12-03 05:43] LABS: ABG BASE EXCESS 12.6 mmol/L (-2.0-2.0)
[2021-12-03] MEDS: NORCO 5/325 MG TAB PO PRN ×4 (06:22→20:49)
[2021-12-03 06:40] LABS: ALANINE AMINOTRANSFERASE 19 Units/L (12-78); ALBUMIN 2.8 g/dL (3.4-5.0); ALKALINE PHOSPHATASE 125 Units/L (46-116); ASPARTATE AMINO TRANSFERASE 18 Units/L (15-37); BLOOD UREA NITROGEN 12 mg/dL (7-18); CALCIUM 8.2 mg/dL (8.5-10.1); CARBON DIOXIDE 34.6 mmol/L (21-32); CHLORIDE 107 mmol/L (98-107); COR CA(FOR HYPOALB) 9.2 mg/dL (8.5-10.1); CREATININE 0.43 mg/dL (0.55-1.02); TOTAL PROTEIN 5.9 g/dL (6.4-8.2); eGFR NON BLACK RACES > 60 (>60)
[2021-12-03 06:51] LABS: BASOPHILS % (AUTO) 0.1 % (0.2-1.0); HEMATOCRIT 36.2 % (36.0-47.0); HEMOGLOBIN 12.2 g/dL (12.0-16.0); LYMPHOCYTES # (AUTO) 0.3 X10^3/uL (1.3-2.9); LYMPHOCYTES % (AUTO) 4.2 % (21.0-51.0); MEAN CORPUSCULAR HEMOGLOBIN 30.2 pg (27.0-34.0); MEAN CORPUSCULAR HGB CONC 33.6 g/dL (33.0-35.0); MEAN PLATELET VOLUME 8.6 fL (7.4-11.0); MONOCYTES # (AUTO) 0.3 x10^3/uL (0.3-0.8); MONOCYTES % (AUTO) 3.8 % (0.0-13.0); NEUTROPHILS # (AUTO) 6.8 x10^3/uL (2.2-4.8); NEUTROPHILS % (AUTO) 91.9 % (42.0-75.0); RED BLOOD COUNT 4.02 X10^6/uL (3.5-5.4); RED CELL DISTRIBUTION WIDTH 15.7 % (11.6-16.5); WHITE BLOOD COUNT 7.3 X10^3/uL (3.6-10.0)
[2021-12-03 07:12] LABS: COR NA(FOR HYPERGLY) 147 mmol/L (136-145); SODIUM 146 mmol/L (136-145)
[2021-12-03 07:54] LABS: BAND NEUTROPHILS % 8 % (0-10); PLATELET MORPHOLOGY COMMENT NORMAL (NORMAL)
--- NOTE | 2021-12-03 08:10 | RAD ---
HISTORYCOPDSTUDYCHEST x-ray, 1 VIEWCOMPARISONX-ray 12/02/2021FINDINGSCOPD. There is cardiomegaly without suggestion of CHF. Small pleural effusions are not excluded. Overlying structures are seen projected in the right upper chest. No evidence of pneumonia. No pneumothorax is seen.IMPRESSIONCardiomegaly without evidence of CHF.COPD.Appearance of the chest is similar to prior study.Electronically signed by: Chip Abbott (Dec 03, 2021 08:08:55)
[2021-12-03] MEDS: CELEXA PO SCH (09:07)
[2021-12-03] MEDS: COREG TAB 6.25 MG PO SCH ×2 (09:08→20:49)
[2021-12-03] MEDS: DALIRESP PO SCH (09:13)
[2021-12-03] MEDS: ENTRESTO 24/26 MG TAB PO SCH ×2 (09:13→20:49)
[2021-12-03] MEDS: LIPITOR TAB 40 MG PO SCH (09:14)
[2021-12-03] MEDS: PULMICORT NEB TX 0.5 MG NEB SCH ×2 (09:40→20:25)
[2021-12-03] MEDS: PLAVIX PO SCH (09:43)
[2021-12-03] MEDS: XANAX PO PRN ×2 (12:10→20:50)
[2021-12-03] MEDS ORDERED: K-RIDER 10 MEQ/NS 100 ML 10 MEQ/100 ML BAG IV PRN (12:16)
[2021-12-03] MEDS ORDERED: MICRO K EXTEN CAP 10 MEQ PO PRN (12:16)
[2021-12-03] MEDS ORDERED: POTASSIUM CHL 60 MEQ/NS 0.45% 500 ML IV PRN (12:16)
[2021-12-03] MEDS ORDERED: KLOR-CON PO PRN (12:16)
[2021-12-03] MEDS ORDERED: MAGNESIUM SULFATE 1 GRAM/100 mL PREMIX 1 G/100 ML BAG IV PRN (12:16)
[2021-12-03] MEDS ORDERED: POTASSIUM CHLORIDE LIQ 20 MEQ UDC PO PRN (12:16)
[2021-12-03] MEDS ORDERED: POTASSIUM CHL 40 MEQ/NS 0.45% 500 ML IV PRN (12:16)
[2021-12-03] MEDS: K-DUR TAB 20 MEQ PO PRN (15:10)
[2021-12-04] MEDS: DUONEB 0.5 MG/3 MG (3 mL) NEB SCH ×4 (00:12→12:50)
[2021-12-04] MEDS: ROCEPHIN 1 GRAM IV PREMIX 1 G/50 ML IV.SOLN. IV SCH (01:01)
[2021-12-04] MEDS: ZITHROMAX INJ 500 MG VIAL 500 MG in NS 250 ML IV 250 ML IV SCH (02:22)
[2021-12-04] MEDS: SOLU-Medrol 40 MG VIAL IVP SCH ×2 (02:23→08:40)
[2021-12-04 07:42] LABS: BASOPHILS % (AUTO) 0.2 % (0.2-1.0); HEMATOCRIT 38.4 % (36.0-47.0); HEMOGLOBIN 12.8 g/dL (12.0-16.0); LYMPHOCYTES # (AUTO) 0.3 X10^3/uL (1.3-2.9); LYMPHOCYTES % (AUTO) 3.4 % (21.0-51.0); MEAN CORPUSCULAR HEMOGLOBIN 30.2 pg (27.0-34.0); MEAN CORPUSCULAR HGB CONC 33.5 g/dL (33.0-35.0); MEAN CORPUSCULAR VOLUME 90.2 fL (80.0-100.0); MEAN PLATELET VOLUME 8.2 fL (7.4-11.0); MONOCYTES # (AUTO) 0.3 x10^3/uL (0.3-0.8); MONOCYTES % (AUTO) 3.6 % (0.0-13.0); NEUTROPHILS # (AUTO) 7.1 x10^3/uL (2.2-4.8); NEUTROPHILS % (AUTO) 92.8 % (42.0-75.0); RED BLOOD COUNT 4.26 X10^6/uL (3.5-5.4); WHITE BLOOD COUNT 7.7 X10^3/uL (3.6-10.0)
[2021-12-04 07:56] LABS: ALANINE AMINOTRANSFERASE 20 Units/L (12-78); ALBUMIN 2.9 g/dL (3.4-5.0); ALKALINE PHOSPHATASE 125 Units/L (46-116); ASPARTATE AMINO TRANSFERASE 17 Units/L (15-37); BLOOD UREA NITROGEN 16 mg/dL (7-18); CALCIUM 8.1 mg/dL (8.5-10.1); CARBON DIOXIDE 33.7 mmol/L (21-32); CHLORIDE 107 mmol/L (98-107); COR NA(FOR HYPERGLY) 145 mmol/L (136-145); CREATININE 0.53 mg/dL (0.55-1.02); SODIUM 144 mmol/L (136-145); TOTAL PROTEIN 6.1 g/dL (6.4-8.2); eGFR NON BLACK RACES > 60 (>60)
[2021-12-04 08:29] LABS: BAND NEUTROPHILS % 6 % (0-10); PLATELET MORPHOLOGY COMMENT NORMAL (NORMAL)
[2021-12-04] MEDS: PLAVIX PO SCH (08:39)
[2021-12-04] MEDS: DALIRESP PO SCH (08:39)
[2021-12-04] MEDS: ENTRESTO 24/26 MG TAB PO SCH (08:39)
[2021-12-04] MEDS: CELEXA PO SCH (08:39)
[2021-12-04] MEDS: COREG TAB 6.25 MG PO SCH (08:39)
[2021-12-04] MEDS: LIPITOR TAB 40 MG PO SCH (08:39)
[2021-12-04] MEDS: NORCO 5/325 MG TAB PO PRN (08:40)
[2021-12-04] MEDS: PULMICORT NEB TX 0.5 MG NEB SCH (09:15)
[2021-12-04] MEDS: K-DUR TAB 20 MEQ PO PRN (09:55)
[2021-12-04] MEDS: XANAX PO PRN (10:05)
[2021-12-04 12:42] VITALS: BP 166/76
[2021-12-04] MEDS ORDERED: PEPCID TAB 40 MG PO STA (12:45)
[2021-12-04] MEDS ORDERED: PEPCID TAB 40 MG ONE (12:48)
== END 2021-12-04 14:35 | disposition home or self-care (01) ==
LOC: ER 13:02 → U 13:02 → ER 12-01 00:11 → U 12-01 03:28 → MED/SURG 12-01 17:35
PROVIDERS: ADMIT Internal Medicine; ATTEND Internal Medicine
DX: J44.1 Chronic obstructive pulmonary disease with (acute) exacerbation; E87.6 Hypokalemia; K21.9 Gastro-esophageal reflux disease without esophagitis; R94.31 Abnormal electrocardiogram [ECG] [EKG]; Z72.0 Tobacco use; M19.90 Unspecified osteoarthritis, unspecified site; I50.9 Heart failure, unspecified; I11.0 Hypertensive heart disease with heart failure; Z20.822 Contact with and (suspected) exposure to COVID-19; I25.10 Atherosclerotic heart disease of native coronary artery without angina pectoris; R06.02 Shortness of breath